=== PATIENT | male | born 1955 | race Caucasian/White ===

== ENCOUNTER → 2021-10-04 | Day surgery (SDC) | payer OTHER ==
[~2021-10-04] VITALS: Ht 172.7 cm; Wt 68.9 kg
[~2021-10-04] MED LIST: ASCORBIC ACID500 MG PO; IBUPROFEN800 MG PO; ONE-DAILY MULT1 EACH PO; PERCOCET 5-3251 EACH PO; ROBAXIN750 MG PO; VITAMIN B12 PO
[2021-10-04 10:04] LABS: HCT 44.9 % (42.0-52.0); HGB 15.3 g/dl (13.2-18.0); MCH 31.9 pg (25.0-31.0); MCHC 34.1 g/dL (32.0-36.0); MCV 93.7 fL (78.0-100.0); MPV 9.2 fL (6.0-9.5); RBC 4.79 M/uL (4.70-6.00); RDW 12.9 % (11.5-14.0); WBC 6.8 K/uL (4.0-10.5)
[2021-10-04 10:54] LABS: ALBUMIN 3.3 g/dL (3.4-5.0); BILIRUBIN - TOTAL 0.2 mg/dL (0.2-1.0); BUN/CREAT RATIO (CALC) 24.4 RATIO; CREATININE 0.78 mg/dL (0.67-1.17); GLOBULIN (CALCULATION) 3.7 g/dL
== END | disposition home or self-care (01) ==
LOC: FAS 09:26
PROVIDERS: Orthopaedic Surgery
DX: S43.102A Unspecified dislocation of left acromioclavicular joint, initial encounter (principal); X58.XXXA Exposure to other specified factors, initial encounter
CPT/HCPCS: 36415; 71045; 80053; 93005; J0171; J0690; J1100; J1170; J2250; J2405; J2704; J2710; J3010; J7120

== ENCOUNTER → 2021-11-01 | Day surgery (SDC) | payer OTHER ==
[~2021-11-01] VITALS: Ht 172.7 cm; Wt 68.0 kg
== END | disposition home or self-care (01) ==
LOC: FAS 09:16
DX: T84.098A Other mechanical complication of other internal joint prosthesis, initial encounter (principal); F17.200 Nicotine dependence, unspecified, uncomplicated
CPT/HCPCS: C1713; C1762; J0690; J1100; J1170; J1885; J2250; J2405; J2704; J2795; J7120